=== PATIENT | male | born 1965 | race African-American/Black ===

== ENCOUNTER 2016-09-30 19:35 | Emergency (ER) | payer OTHER ==
[~2016-09-30] VITALS: Ht 182.9 cm; Wt 100.0 kg
[~2016-09-30 19:35] MED LIST: LISI2.5T3 PO; PAXI40TA PO
[2016-09-30 19:37] VITALS: BP 169/111; PULSE 84; RESP 15; TEMP 98.3; O2SAT 97
--- NOTE | 2016-09-30 20:33 | PD ---
HPI Chief Complaint: Musculoskeletal Complaint Time Seen by Provider: 20:20 Travel History International Travel<30 days: No Contact w/Intl Traveler<30days: No Traveled to known affect area: No History of Present Illness HPI 51-year-old male with history of hypertension, legal blindness presents for evaluation of right knee pain. He reports that symptoms started yesterday spontaneously while he is walking. The pain is an aching pain in the medial aspect and posterior aspect of the right knee which is worse when bending his knee or walking. He has no pain in his right thigh, hip, calf, ankle, foot. He does not recall any trauma. He does not recall twisting his knee. He has never had this problem before. He has no other complaints. [facility] Past Medical History Blood Disorders: No Cardiovascular Problems: Yes Diminished Hearing: No Genitourinary: No Headaches: Yes Hypertension: Yes Implanted Vascular Access Dvce: No Musculoskeletal: No Neurologic: No Respiratory: No Tetanus Vaccination: < 5 Years Influenza Vaccination: No Past Surgical History Genitourinary Surgery: Yes (VASECTOMY) Other Surgery: Yes (RIGHT ULNAR NERVE RELEASE) Social History Alcohol Use: No Tobacco Use: Yes (1 CIGAR A DAY) Substance Use: Yes (marijuana use) Allergies-Medications (Allergen,Severity, Reaction): Coded Allergies: No Known Allergies (Verified , 09/30/16) Reported Meds & Prescriptions Reported Meds & Active Scripts Active Reported Paxil (Paroxetine HCl) 40 Mg Tab 40 Mg PO DAILY Lisinopril 2.5 Mg Tab 2.5 Mg PO DAILY Review of Systems Except as stated in HPI: all other systems reviewed are Neg Physical Exam Narrative GENERAL: Well-developed well-nourished male in no acute distress SKIN: Warm and dry. No bruising, no soft tissue swelling HEAD: Atraumatic. Normocephalic. EYES: Pupils equal and round. No scleral icterus. No injection or drainage. ENT: No nasal bleeding or discharge. Mucous membranes pink and moist. NECK: Trachea midline. No JVD. CARDIOVASCULAR: Regular rate and rhythm. No murmur appreciated. RESPIRATORY: No accessory muscle use. Clear to auscultation. Breath sounds equal bilaterally. MUSCULOSKELETAL: No obvious deformities. There is mild tenderness to palpation on the medial aspect of the right knee. The patient maintains full flexion and extension of the right knee. There is no obvious laxity on anterior/posterior/ valgus/varus stress. No lower extremity edema. Negative Homans. 2+ dorsalis pedis and posterior tibial pulses. NEUROLOGICAL: Awake and alert. No obvious cranial nerve deficits. Motor grossly within normal limits. Normal speech. Data Data Last Documented VS Vital Signs Date Time Temp Pulse Resp B/P Pulse Ox O2 Delivery O2 Flow Rate FiO2 09/30/16 20:22 16 09/30/16 19:37 98.3 84 169/111 97 Room Air Orders Knee, Complete (4vws) (09/30/16 ) [facility] Medical Decision Making Medical Screen Exam Complete: Yes Emergency Medical Condition: Yes Medical Record Reviewed: Yes Differential Diagnosis Right knee strain, MCL tear, medial meniscus tear, sprain, medial compartment osteoarthritis Narrative Course 51-year-old male with medial right knee pain for 1 day with no known injury. Physical examination is benign. He has mild tenderness to palpation medial right knee joint. There is no obvious laxity on stress examination, there is no joint effusion, no evidence of a septic joint. There is no crepitus. An x- ray was performed and reveals no abnormalities. Suspect a mild strain versus tendinitis. Recommended follow-up with primary care as needed. Stable for discharge. Diagnosis Primary Impression: Right knee pain Qualified Code: M25.561 - Acute pain of right knee Additional Instructions: Avoid activities that exacerbate your pain. Perform normal activities of daily living as tolerated. Take Tylenol or Motrin for discomfort. Follow-up with primary care physician as needed if symptoms persist. Med/Other Pt SpecificInfo: No Change to Meds Disposition: 01 DISCHARGE HOME Condition: Stable Kendell Mayen Sep 30, 2016 20:33
--- NOTE | 2016-09-30 20:59 | RADRPT ---
EXAM DATE/TIME: 09/30/2016 20:56 [facility] COMPARISON: No previous studies available for comparison. INDICATIONS : Right knee pain from unknown injury. MEDICAL HISTORY : None. SURGICAL HISTORY : None. ENCOUNTER: Initial ACUITY: 1 day PAIN SCORE: 7/10 LOCATION: Right knee FINDINGS: Four view examination of the right knee demonstrates no evidence of fracture or dislocation. Bony mi neralization is normal. The articular surfaces are intact. The suprapatellar soft tissues have a no rmal configuration. CONCLUSION: Unremarkable exam. Riley Parker MD on September 30, 2016 at 20:56 Board Certified Radiologist. This report was verified electronically.
== END 2016-09-30 21:40 | disposition home or self-care (01) ==
LOC: NEPB 19:35
DX: M25.561 Pain in right knee (principal); I10 Essential (primary) hypertension; H54.8 Legal blindness, as defined in USA
CPT/HCPCS: 73564; 99283

== ENCOUNTER 2017-03-09 18:58 | Emergency (ER) | payer OTHER ==
[~2017-03-09] VITALS: Ht 188 cm; Wt 99.0 kg
[2017-03-09 18:59] VITALS: BP 181/95; PULSE 100; RESP 20; TEMP 102.6; O2SAT 95
[2017-03-09] MEDS ORDERED: PARO40TA2 PO (19:31)
[2017-03-09] MEDS ORDERED: CHLO25TA2 PO (19:35)
--- NOTE | 2017-03-09 19:38 | PD ---
HPI Chief Complaint: Fever Time Seen by Provider: 19:38 Travel History International Travel<30 days: No Contact w/Intl Traveler<30days: No Traveled to known affect area: No History of Present Illness HPI 51 year old male presents to the emergency department for evaluation of headache , low back pain, cough, congestion that started approximately 2 days ago. Patient last took Tylenol at 2am. He reports history of chronic back pain and right sided sciatica. Patient reports surgery to lumbar spine. Patient denies any current chest pain, states he had some minor chest pain with coughing previously, but none at this time. He denies any abdominal pain, vomiting, diarrhea. Patient reports that he is blind, history of HTN, back pain. He denies any history of IVDU. Patient is ambulatory. He denies any sore throat. Patient reports history of MRSA. PFSH Past Medical History Blood Disorders: No Cardiovascular Problems: Yes Diminished Hearing: No Genitourinary: No Headaches: Yes Hypertension: Yes Implanted Vascular Access Dvce: No Musculoskeletal: No Neurologic: No Respiratory: No Past Surgical History Genitourinary Surgery: Yes (VASECTOMY) Other Surgery: Yes (RIGHT ULNAR NERVE RELEASE) Social History Alcohol Use: No Tobacco Use: Yes (1 CIGAR A DAY) Substance Use: Yes (marijuana use) Allergies-Medications (Allergen,Severity, Reaction): Coded Allergies: No Known Allergies (Verified , 03/09/17) Reported Meds & Prescriptions Reported Meds & Active Scripts Active Reported Chlorthalidone 25 Mg Tab 25 Mg PO DAILY Paroxetine (Paroxetine HCl) 40 Mg Tab 40 Mg PO DAILY Lisinopril 2.5 Mg Tab 2.5 Mg PO DAILY Review of Systems Except as stated in HPI: all other systems reviewed are Neg Physical Exam Narrative GENERAL: Well-nourished, well-developed male patient, ambulatory and in no acute distress. Patient is febrile with temp of 102.6. SKIN: Focused skin assessment warm/dry. HEAD: Normocephalic. Atraumatic. ENT: Mucosa pink and moist. No erythema or exudates. No uvular edema. No uvular , palatal, or tonsillar deviation. Airway patent. Nasal turbinates appear normal without nasal blood, purulent drainage or septal hematoma. EYES: No scleral icterus. No injection or drainage. NECK: Supple, trachea midline. No JVD or lymphadenopathy. No nuchal rigidity. CARDIOVASCULAR: Regular rate and rhythm without murmurs, gallops, or rubs. RESPIRATORY: Breath sounds equal bilaterally. No accessory muscle use. Lung sounds are clear to auscultation throughout. GASTROINTESTINAL: Abdomen soft, non-tender, nondistended. MUSCULOSKELETAL: No cyanosis, or edema. BACK: Nontender without obvious deformity. No CVA tenderness. No midline spinal tenderness. Data Data Last Documented VS Vital Signs Date Time Temp Pulse Resp B/P Pulse Ox O2 Delivery O2 Flow Rate FiO2 03/09/17 20:20 18 96 Room Air 03/09/17 18:59 102.6 100 181/95 Orders Complete Blood Count With Diff (03/09/17 19:35) Comprehensive Metabolic Panel (03/09/17 19:35) Magnesium (Mg) (03/09/17 19:35) Ckmb (Isoenzyme) Profile (03/09/17 19:35) Troponin I (03/09/17 19:35) Urinalysis - C+S If Indicated (03/09/17 19:35) Influenzae A/B Antigen (03/09/17 19:35) Blood Culture (03/09/17 19:35) Iv Access Insert/Monitor (03/09/17 19:35) Electrocardiogram (03/09/17 19:35) Ecg Monitoring (03/09/17 19:35) Oximetry (03/09/17 19:35) Oxygen Administration (03/09/17 19:35) Chest, Single Ap (03/09/17 19:35) Sodium Chloride 0.9% Flush (Ns Flush) (03/09/17 19:45) Lactic Acid Sepsis Protocol (03/09/17 19:35) Sodium Chlor 0.9% 1000 Ml Inj (Ns 1000 M (03/09/17 19:45) Sodium Chlor 0.9% 1000 Ml Inj (Ns 1000 M (03/09/17 19:45) Acetaminophen (Tylenol) (03/09/17 19:45) CKMB (03/09/17 19:56) CKMB% (03/09/17 19:56) Ketorolac Inj (Toradol Inj) (03/09/17 21:45) Labs Laboratory Tests Test 03/09/17 03/09/17 19:56 21:00 White Blood Count 5.2 TH/MM3 Red Blood Count 4.45 MIL/MM3 Hemoglobin 13.6 GM/DL Hematocrit 39.9 % Mean Corpuscular Volume 89.8 FL Mean Corpuscular Hemoglobin 30.7 PG Mean Corpuscular Hemoglobin 34.1 % Concent Red Cell Distribution Width 12.8 % Platelet Count 212 TH/MM3 Mean Platelet Volume 8.8 FL Neutrophils (%) (Auto) 69.2 % Lymphocytes (%) (Auto) 18.2 % Monocytes (%) (Auto) 11.9 % Eosinophils (%) (Auto) 0.3 % Basophils (%) (Auto) 0.4 % Neutrophils # (Auto) 3.6 TH/MM3 Lymphocytes # (Auto) 0.9 TH/MM3 Monocytes # (Auto) 0.6 TH/MM3 Eosinophils # (Auto) 0.0 TH/MM3 Basophils # (Auto) 0.0 TH/MM3 CBC Comment DIFF FINAL Differential Comment Sodium Level 138 MEQ/L Potassium Level 4.4 MEQ/L Chloride Level 105 MEQ/L Carbon Dioxide Level 28.9 MEQ/L Anion Gap 4 MEQ/L Blood Urea Nitrogen 10 MG/DL Creatinine 1.54 MG/DL Estimat Glomerular Filtration 58 ML/MIN Rate Random Glucose 104 MG/DL Lactic Acid Level 1.4 mmol/L Calcium Level 9.0 MG/DL Magnesium Level 1.7 MG/DL Total Bilirubin 0.8 MG/DL Aspartate Amino Transf 47 U/L (AST/SGOT) Alanine Aminotransferase 24 U/L (ALT/SGPT) Alkaline Phosphatase 54 U/L Total Creatine Kinase 173 U/L Creatine Kinase MB LESS THAN 0.5 NG/ML Troponin I LESS THAN 0.02 NG/ML Total Protein 8.0 GM/DL Albumin 3.6 GM/DL Urine Color LIGHT-YELLOW Urine Turbidity CLEAR Urine pH 8.0 Urine Specific [place] 1.005 Urine Protein NEG mg/dL Urine Glucose (UA) NEG mg/dL Urine Ketones NEG mg/dL Urine Occult Blood NEG Urine Nitrite NEG Urine Bilirubin NEG Urine Urobilinogen LESS THAN 2.0 MG/DL Urine Leukocyte Esterase NEG Urine RBC 1 /hpf Urine WBC LESS THAN 1 /hpf Microscopic Urinalysis Comment CULT NOT INDICATED MDM Medical Decision Making Medical Screen Exam Complete: Yes Emergency Medical Condition: Yes Medical Record Reviewed: Yes Interpretation(s) chest x-ray -CONCLUSION: Mild atelectasis or consolidation at the left base. Differential Diagnosis PNA vs. viral syndrome vs. influenza vs. UTI vs. electrolyte abnormality Narrative Course 51 year old male presents to the emergency department for evaluation of low back pain, cough, congestion, headache, fever for 2 days. EKG, CBC, CMP, Magnesium, CK, troponin, influenza, UA, blood cultures x 2, lactic acid, chest x -ray are ordered and pending. Patient is given NS 2 L IV bolus, Tylenol 650 mg PO. EKG shows SR, HR 89, no acute ST changes. CBC shows WBC of 5.2, elevated monocytes at 11.9. CMP shows creatinine of 1.54, AST 47. Magnesium is 1.7. CK is 173. Troponin is less than 0.02. Lactic acid is 1.4. Influenza is negative. UA is negative. Chest x-ray shows mild atelectasis or consolidation at the left base. Laboratory findings are reassuring. Patient will be discharged with a prescription for azithromycin for possible pneumonia. He verbalizes agreement and understanding. He is to return for any acute, worsening of symptoms. I discussed the findings with my attending physician, Dr. Ramirez, who agrees with plan and disposition. The patient was discharged in stable condition with instructions, including return instructions and follow up instructions. Diagnosis Primary Impression: Pneumonia Qualified Code: J18.1 - Pneumonia of left lower lobe due to infectious organism Referrals: Primary Care Physician call for appointment Patient Instructions: Community Acquired Pneumonia (ED), General Instructions Additional Instructions: Take antibiotic as directed until gone. Over the counter Tylenol every 4 hours as needed for fever/pain, over the counter Ibuprofen every 6-8 hours as needed for fever/pain. Follow up with your primary care physician. Return to the emergency department for any acute, worsening of symptoms. Med/Other Pt SpecificInfo: Prescription(s) given Scripts Azithromycin (Zithromax Z-Horace)250 Mg [id number] Mg PO DIRECTED #1 DSPK Ref 0 500 MG (2 tabs) day 1, then 1 tab days 2-5. Prov:Pam Tipton 03/09/17 Disposition: 01 DISCHARGE HOME Condition: Stable Pam Tipton Mar 09, 2017 19:38
[2017-03-09] MEDS ORDERED: SODIUM CHLOR 0.9% 1000 ML INJ 1,000 ML IV ONE ×2 (19:45)
[2017-03-09] MEDS ORDERED: ACETAMINOPHEN 325 MG TAB PO ONE (19:45)
[2017-03-09 20:20] VITALS: RESP 18; O2SAT 96
[2017-03-09] MEDS: SODIUM CHLORIDE 0.9% FLUSH 10 ML FLUSH IVF PRN ×2 (20:20→21:59)
[2017-03-09 20:26] LABS: AUTOMATED NEUTROPHIL # 3.6 TH/MM3 (1.8-7.7); BASOPHIL % 0.4 % (0.0-2.0); EOSINOPHIL % 0.3 % (0.0-4.0); HEMATOCRIT 39.9 % (39.0-51.0); HEMO FLAGS DIFF FINAL; LYMPH % 18.2 % (9.0-44.0); LYMPHOCYTE # 0.9 TH/MM3 (1.0-4.8); MEAN CELL VOLUME 89.8 FL (80.0-100.0); MEAN CORPUSCULAR HEMOGLOBIN 30.7 PG (27.0-34.0); MEAN CORPUSCULAR HGB CONC 34.1 % (32.0-36.0); MONO % 11.9 % (0.0-8.0); NEUT % 69.2 % (16.0-70.0); PLATELET COUNT 212 TH/MM3 (150-450); RED BLOOD COUNT 4.45 MIL/MM3 (4.50-5.90); RED CELL DISTRIBUTION WIDTH 12.8 % (11.6-17.2); WHITE BLOOD COUNT 5.2 TH/MM3 (4.0-11.0)
--- NOTE | 2017-03-09 20:27 | RADRPT ---
EXAM DATE/TIME: 03/09/2017 19:59 [facility] COMPARISON: No previous studies available for comparison. INDICATIONS : Patient complains of headache. MEDICAL HISTORY : Hypertension. SURGICAL HISTORY : None. ENCOUNTER: Initial ACUITY: 2 days PAIN SCORE: 10/10 LOCATION: Bilateral chest FINDINGS: The heart size is normal. There is mildly increased density at the left base. The right lung is clear . CONCLUSION: Mild atelectasis or consolidation at the left base. Tello Cordoba MD on March 09, 2017 at 20:24 Board Certified Radiologist. This report was verified electronically.
[2017-03-09 20:49] LABS: ALT (GPT) 24 U/L (12-78)
[2017-03-09 21:01] LABS: ALKALINE PHOSPHATASE 54 U/L (45-117); ANION GAP 4 MEQ/L (5-15); AST (GOT) 47 U/L (15-37); BICARBONATE 28.9 MEQ/L (21.0-32.0); BLOOD UREA NITROGEN 10 MG/DL (7-18); CHLORIDE 105 MEQ/L (98-107); CREATINE KINASE 173 U/L (39-308); GLOMERULAR FILTRATION RATE 58 ML/MIN (>89); MAGNESIUM 1.7 MG/DL (1.5-2.5); SODIUM (NA) 138 MEQ/L (136-145); TOTAL BILIRUBIN ADULT 0.8 MG/DL (0.2-1.0)
[2017-03-09 21:08] LABS: BLOOD, URINE NEG (NEG); COMMENT (UR) CULT NOT INDICATED; CULTURE IF INDICATED CULT NOT INDICATED; GLUCOSE,URINE NEG (NEG); KETONE, URINE NEG (NEG); NITRITE,URINE NEG (NEG); URINE COLOR LIGHT-YELLOW (YELLW/STRAW)
[2017-03-09 21:13] LABS: CKMB LESS THAN 0.5 NG/ML (0.5-3.6)
[2017-03-09 21:33] LABS: POTASSIUM 4.4 MEQ/L (3.5-5.1)
[2017-03-09 21:38] VITALS: BP 158/91; PULSE 97; TEMP 99.6; O2SAT 95
[2017-03-09] MEDS ORDERED: ZITHTAB PO (21:43)
[2017-03-09] MEDS ORDERED: KETOROLAC TROMETHAMINE 30 MG/ML (IVP) VIAL IV PUSH ONE (21:45)
--- NOTE | 2017-03-10 09:27 | EKG ---
Date Performed: 03/09/2017 Time Performed: 20:20:29 PTAGE: 51 years EKG: Sinus rhythm NONSPECIFIC T-WAVE ABNORMALITY BORDERLINE ECG NO PREVIOUS TRACING DOCTOR: Steven Hannah Interpretating Date/Time 03/10/2017 09:26:37
== END 2017-03-09 22:43 | disposition home or self-care (01) ==
LOC: NEPE 18:58
DX: J18.1 Lobar pneumonia, unspecified organism (principal); I10 Essential (primary) hypertension; F12.90 Cannabis use, unspecified, uncomplicated; Z72.0 Tobacco use
CPT/HCPCS: 71010; 80053; 81001; 82550; 82552; 83605; 83735; 84484; 85025; 87040; 87804; 93005; 96360; 96374; 99285; J1885; J7030

== ENCOUNTER 2017-11-20 10:37 | Emergency (ER) | payer OTHER ==
[~2017-11-20] VITALS: Ht 182.9 cm; Wt 100.0 kg
[~2017-11-20 10:37] MED LIST changes: +CHLO25TA2 PO; +PARO40TA2 PO; -PAXI40TA PO; +ZITHTAB PO
[2017-11-20 10:40] VITALS: BP 167/95; PULSE 81; RESP 18; TEMP 98.4; O2SAT 95
--- NOTE | 2017-11-20 10:54 | PD ---
HPI Chief Complaint: Pain: Acute or Chronic Time Seen by Provider: 10:45 Travel History International Travel<30 days: No Contact w/Intl Traveler<30days: No Traveled to known affect area: No History of Present Illness HPI Patient comes to the emergency department complaining of right forearm pain that began 2 days ago. Patient reports pain is over the distal forearm radial aspect that radiates proximally. Pain is worse with palpation and certain movement. Patient denies any known injury. Patient reports he has had similar happen to him in the past has received various diagnosis. Patient reports taking [id number] medications and trying ice with minimal to no improvement of symptoms. Describes pain as achiness. Severity mild. Patient reports he is primarily left hand dominant but does use his right hand for certain things. PFSH Past Medical History Blood Disorders: No Cardiovascular Problems: Yes Diminished Hearing: No Genitourinary: No Headaches: Yes Hypertension: Yes Implanted Vascular Access Dvce: No Musculoskeletal: No Neurologic: No Respiratory: No Past Surgical History Genitourinary Surgery: Yes (VASECTOMY) Other Surgery: Yes (RIGHT ULNAR NERVE RELEASE) Social History Alcohol Use: No Tobacco Use: Yes (1 CIGAR A DAY) Substance Use: Yes (marijuana use) Allergies-Medications (Allergen,Severity, Reaction): Coded Allergies: No Known Allergies (Verified Adverse Reaction, Unknown, 11/20/17) Reported Meds & Prescriptions Reported Meds & Active Scripts Active Medrol Dosepak (Methylprednisolone) 4 Mg Dspk 4 Mg PO DIRECTED Per Pharmacist direction Reported Chlorthalidone 25 Mg Tab 25 Mg PO DAILY Paroxetine (Paroxetine HCl) 40 Mg Tab 40 Mg PO DAILY Lisinopril 2.5 Mg Tab 2.5 Mg PO DAILY Review of Systems Except as stated in HPI: all other systems reviewed are Neg Physical Exam Narrative GENERAL: Well-developed, overly nourished, in no acute distress, and non-ill appearing. SKIN: Focused skin assessment warm and dry. HEAD: Atraumatic. Normocephalic. EYES: Pupils equal and round. EOMI. No scleral icterus. No injection or drainage. ENT: No nasal bleeding or discharge. Mucous membranes pink and moist. NECK: Trachea midline. Supple. No nuclear rigidity. CARDIOVASCULAR: Radial pulses 2+, intact, and equal bilaterally. Capillary refill less than 2 seconds. RESPIRATORY: No accessory muscle use. No respiratory distress. MUSCULOSKELETAL: No obvious deformities. No clubbing. No cyanosis. No edema. Full range of motion. Wrist: FROM and equal BL with passive flexion, extension , and pronation/supination. Capillary refill less than 2 seconds distal to injury and equal BL. FROM distal to injury and equal BL. Strength distal to injury equal BL. NV intact distal to injury. Flexion and extension of thumb equal BL. Equal strength and movement with abduction/adductions of BL fingers. Reweaver strength equal BL. No tenderness to the anatomical snuffbox. Patient reports tenderness over radial aspect of distal right forearm. There is some soft tissue swelling noted. A rubbing sensation is noted when patient moves his wrist. No crepitus, erythematous, induration, or fluctuation. NEUROLOGICAL: Awake and alert. No obvious cranial nerve deficits. Motor grossly within normal limits. Normal speech. PSYCHIATRIC: Appropriate mood and affect; insight and judgment normal. Data Data Last Documented VS Vital Signs Date Time Temp Pulse Resp B/P (MAP) Pulse Ox O2 Delivery O2 Flow Rate FiO2 11/20/17 10:40 98.4 81 18 167/95 (119) 95 Orders Orders Dexamethasone Inj (Decadron Inj) (11/20/17 11:00) Forearm (2vws) (11/20/17 ) Ed Discharge Order (11/20/17 12:04) Splint Or Brace Apply/Monitor (11/20/17 12:04) [employer] Request For Service (11/20/17 12:04) [facility] Medical Decision Making Medical Screen Exam Complete: Yes Emergency Medical Condition: Yes Interpretation(s) Last Impressions Radius/Ulna X-Ray 11/20/17 0000 Signed Impressions: Service Date/Time: Monday, November 20, 2017 11:00 - CONCLUSION: Unremarkable examination of the right forearm. Shonda Mg MD Differential Diagnosis Cellulitis, necrotizing fasciitis, abscess, tendinitis, strain, fracture Narrative Course There is no clinical evidence for fracture. There is no clinical evidence to suspect bony injury by exam. Radiographic examination revealed no fracture seen at this time. No obvious ligamental injury or internal derangement is noted at this time. The distal extremity appears neurovascularly intact, without evidence of neurovascular injury nor compartment syndrome. Tendon exam also was intact. The effected limb was splinted. The patient was discharged tendinitis care instructions and given warnings for vascular compromise. The patient is to follow up with hand surgeon. The patient agrees with plan. Patient in no obvious distress upon re-evaluation. All pertinent Radiology result(s) discussed with patient. Discussed patient with Dr. Multani prior to discharge, who saw and evaluated the patient and is in agreement with plan of care disposition. Any questions/concerns in reference to patient diagnosis/ condition discussed and clarified prior to patient's discharge. Reinforced sheer importance of close follow up with patient's primary physician or primary care clinic and hand surgeon. Instructed patient to return to ED immediately, if symptoms return/worsen. Patient showed understanding of above instructions. Further instructions and recommendations were detailed in discharge paperwork. Patient ambulated without difficulty out of ED at discharge. Diagnosis Primary Impression: Tendinitis Referrals: Josy Vidal MD Patient Instructions: General Instructions, Tendinitis (GEN) Additional Instructions: Follow-up with your primary care physician and/or hand surgeon this week for reevaluation. Take all medication as prescribed. Wear splint as needed for comfort. Apply ice to affected area 20 minutes prior as needed for pain. Return to the emergency department if symptoms get worse. Med/Other Pt SpecificInfo: Prescription(s) given Scripts Methylprednisolone Dosepak (Medrol Dosepak) 4 Mg Dspk 4 MG PO DIRECTED, #1 DSPK 0 Refills Per Pharmacist direction Prov: Billie Multani MD 11/20/17 Disposition: 01 DISCHARGE HOME Condition: Stable Demetris Reyes Nov 20, 2017 10:54
[2017-11-20] MEDS ORDERED: DEXAMETHASONE SOD PHOS 20 MG/5 ML VIAL IM ONE (11:00)
--- NOTE | 2017-11-20 11:11 | RADRPT ---
EXAM DATE/TIME: 11/20/2017 11:00 [facility] COMPARISON: No previous studies available for comparison. INDICATIONS : Pain without trauma. MEDICAL HISTORY : MRSA. SURGICAL HISTORY : None. ENCOUNTER: Initial ACUITY: 2 days PAIN SCORE: 5/10 LOCATION: Right distal forearm. FINDINGS: Two view examination of the right forearm demonstrates no evidence of fracture or dislocation. Bony mineralization is normal. The soft tissue structures are intact. CONCLUSION: Unremarkable examination of the right forearm. Shonda Mg MD on November 20, 2017 at 11:09 Board Certified Radiologist. This report was verified electronically.
--- NOTE | 2017-11-20 12:03 | PD ---
Physical Exam Date Seen by Provider: Nov 20, 2017 Narrative I was asked to give the PA a second opinion regarding this patient. He presents with a 2 day history of right wrist pain which is exacerbated by motion. He uses a cane to ambulate and uses his right hand. He also eats with his right hand. However, he does everything else left-handed. There has been no known injury. Data Data Last Documented VS Vital Signs Date Time Temp Pulse Resp B/P (MAP) Pulse Ox O2 Delivery O2 Flow Rate FiO2 11/20/17 10:40 98.4 81 18 167/95 (119) 95 Orders Orders Dexamethasone Inj (Decadron Inj) (11/20/17 11:00) Forearm (2vws) (11/20/17 ) MDM Supervised Visit with RAMILA: Yes Narrative Course I, Dr. Multani, have reviewed the advance practice practitioner's documentation and am in agreement, met with the patient face to face, made the diagnosis, and the medical decision making was done by me. *My assessment and Findings: He has some mild swelling and tenderness of the right distal forearm, radial side. On radial deviation of his hand there is a palpable rubbing sensation. This probably represents tendinitis. Please see Ananth Reyes PA-C's note for results of laboratory and radiographic evaluation, ED course, final diagnosis and disposition Billie Multani MD Nov 20, 2017 12:03
[2017-11-20] MEDS ORDERED: MEDR4PAK PO (12:05)
== END 2017-11-20 12:28 | disposition home or self-care (01) ==
LOC: NEPD 10:37
DX: M77.9 Enthesopathy, unspecified (principal); M79.631 Pain in right forearm; I10 Essential (primary) hypertension; F17.290 Nicotine dependence, other tobacco product, uncomplicated; Z79.899 Other long term (current) drug therapy
CPT/HCPCS: 73090; 96372; 99283; J1100; L3908